=== PATIENT | female | born 1960 | race Caucasian/White ===

== ENCOUNTER → 2021-05-27 00:28 | Outpatient (CLI) | payer BC, SELFPAY ==
[2021-05-29 20:04] LABS: SARS-CoV-2 RNA PCR Negative
== END ==
PROVIDERS: PCP Family Medicine; Visit Provider Nurse Practitioner Family
DX: R68.89 Other general symptoms and signs (principal); Z20.822 Contact with and (suspected) exposure to COVID-19
CPT/HCPCS: C9803; U0003; U0005

== ENCOUNTER → 2022-01-19 09:50 | Outpatient (CLI) | payer BC, SELFPAY ==
--- NOTE | ~2022-01-19 | DEXA_ITS ---
Bone Density Report Name: JACQUELYN EARLY V Age: 61 Sex: Female Ethnicity: White Date of : 1960 Indication: postmenopausal; screening for osteoporosis; height loss; Referring Provider: ASHU CHENG Study: Bone densitometry was performed. Exam Date: January 19, 2022 Accession number: [id number] Bone Density: Region BMD T-score Z-score Classification AP Spine (L1-L4) 1.205 1.4 2.9 Normal Femoral Neck (Left) 0.697 -1.4 -0.1 Osteopenia Total Hip (Left) 1.015 0.6 1.6 Normal Femoral Neck (Right) 0.706 -1.3 0.0 Osteopenia Total Hip (Right) 0.939 0.0 1.0 Normal Total Hip Mean 0.977 0.3 1.3 Normal World Health Organization criteria for BMD impression classify patients as: Normal (T-score at or above -1.0), Osteopenia (T-score between -1.0 and -2.5), or Osteoporosis (T-score at or below -2.5). 10-year Fracture Risk(1): Major Osteoporotic Fracture 6.9% Hip Fracture 0.5% Reported Risk Factors: [place] (), Neck BMD=0.706, BMI=39.0 (1) FRAX(R) Version 3.08. Fracture probability calculated for an untreated patient. Fracture probability may be lower if the patient has received treatment. Clinical Information Provided by Patient: Has used the following medications: Calcium Patient maximum height was 65.5 Menopause Age: 51 Drinks caffeinated beverages Onset of menses at age 13 Number of children 2 Impression: The patient has low bone mass, based on the Left Femoral Neck T-score. The patient has an estimated ten-year risk of hip fracture of 0.5% and an estimated ten-year risk of major fracture of 6.9%, based on the WHO FRAX algorithm. Discussion: BONE DENSITY IS LOW AT ONE OR MORE SKELETAL SITES. This patient's lowest T-score is low at one or more skeletal sites. It meets the World Health Organization's (WHO) criteria for ?low bone mass? (T-score between -1.0 and -2.5). The patient's 10-year risk of fracture as calculated by FRAX is less than the threshold where pharmacological therapy is recommended by the National Osteoporosis Foundation (NOF). However, all treatment decisions require clinical judgment and consideration of individual patient factors, including patient preferences, comorbidities, previous drug use, risk factors not captured in the FRAX model (e.g., frailty, falls, vitamin D deficiency, increased bone turnover, interval significant decline in bone density) and possible under or overestimation of fracture risk by FRAX. The patient should follow a healthful lifestyle (good nutrition with adequate calcium and vitamin D, and appropriate weight-bearing exercise). Follow-Up: Consider repeating this study in 2 to 3 years to reassess this patient's status, or sooner if there is some new clinical indication. Reported by: [facility] on 01/19/2022 10:27:00 AM.
== END ==
PROVIDERS: PCP Family Medicine; Visit Provider Obstetrics & Gynecology Gynecology
DX: Z78.0 Asymptomatic menopausal state (principal); M85.852 Other specified disorders of bone density and structure, left thigh; M85.851 Other specified disorders of bone density and structure, right thigh
CPT/HCPCS: 77080

== ENCOUNTER → 2022-05-11 09:18 | Outpatient (CLI) | payer BC, SELFPAY ==
--- NOTE | ~2022-05-11 | XR_ITS ---
EXAMINATION: XR knee LT 3V DATE: 05/11/2022 09:29 INDICATION: Left knee pain TECHNIQUE: Three views of the right knee were obtained. COMPARISON: None. FINDINGS: Alignment is normal. No fracture or osteochondral lesion. There is advanced osteoarthritis of the medial and patellofemoral compartments and mild osteoarthritis of the lateral compartment. No joint effusion/synovitis. Soft tissues are unremarkable. IMPRESSION: 1. 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 Reviewed, dictated and finalized at location A. [facility] IMPRESSION: 1. Tricompartmental osteoarthritis, severe in the medial and patellofemoral com partments.
== END ==
PROVIDERS: PCP Family Medicine; Visit Provider Chiropractor
DX: M17.12 Unilateral primary osteoarthritis, left knee (principal)
CPT/HCPCS: 73562

== ENCOUNTER 2024-03-23 06:03 | Emergency (ER) | payer BC, SELFPAY ==
--- NOTE | ~2024-03-23 | XR_ITS ---
Portable chest x-ray Comparison: None Clinical History: Cough, congestion Findings: Probable calcified left basilar granuloma. Lungs are otherwise clear. Cardiomediastinal s ilhouette is stable. Bones and soft tissues are unremarkable. Impression: No definite acute pulmonary abnormality. Reviewed, dictated and finalized at [facility]. Impression: No definite acute pulmonary abnormality.
[2024-03-23 06:19] VITALS: BP 157/82; PULSE 68; RESP 14; O2SAT 97
[2024-03-23 07:19] VITALS: BP 148/76; PULSE 66; RESP 16; O2SAT 97
[2024-03-23 07:21] LABS: Influenza A QL RT-PCR Positive (Negative); Influenza B QL RT-PCR Negative (Negative); RSV RNA, RT-PCR Negative (Negative); SARS-CoV-2 RNA PCR Negative (Negative)
--- NOTE | 2024-03-23 08:21 | ED.GENADULT ---
HPI - General Adult General Chief complaint: Upper Respiratory Infection Stated complaint: sick since last week Time Seen by Provider: 03/23/24 06:58 History of Present Illness HPI narrative: patient is a 63-year-old female who presents ER with cough. Productive of green-yellow sputum. Subjective fevers and chills. No known exposure to influenza. Ongoing for 1 week. No chest pain. She has been on steroids for several days. Related Data Home Medications Medication Instructions Recorded Confirmed calcium 600 mg (as cap PO 08/20/19 12/04/23 carbonate)-vitamin D3 5 mcg (200 unit) capsule (Calcium 600 + D(3)) Allergies Allergy/AdvReac Type Severity Reaction Status Date / Time cefuroxime Allergy Unknown Unknown Verified 02/24/24 10:04 Review of Systems Review of Systems: All systems reviewed & are unremarkable except as noted in HPI and below Constitutional: Constitutional: Reports no additional constitutional complaints ENT: Reports system reviewed and no additional complaints, except as documented Cardiovascular: Cardiovascular: Reports no additional cardiovascular complaints Respiratory: Respiratory: Reports no additional respiratory complaints [facility] Past Medical History Medical History Anxiety Arthritis of knee, left Deviated septum History of vaginal delivery x 2 Hypertension Osteopenia of both hips Right shoulder tendinitis Screening for colon cancer Screening, lipid Thyroid disease Vitamin D deficiency Surgical History Surgical History History of carpal tunnel release History of endometrial ablation History of tubal ligation Family History Family History Mother Hypertension Cerebrovascular accident Family history of malignant neoplasm Family history of diabetes mellitus in first degree relative Family history of coronary artery disease Family history of malignant neoplasm of ovary Patient's mother is Family history of congenital heart disease Family history of arthritis Father Family history of lung cancer Sibling Lung cancer Sibling No problems noted. 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 HEAD: Normocephalic, atraumatic. ENT: Mucous membranes moist. TMs normal bilaterally. CHEST: Clear to auscultation but with scant wheezing to the left lower lung field that clears with coughing. No respiratory distress. HEART: Regular rate and rhythm. Normal peripheral pulses. EXTREMITIES: Normal range of motion. No edema. NEURO: Alert and oriented x3. PSYCH: Normal mood and affect. Course Course Emergency Course: Flu positive. No pneumonia. Discharge home With albuterol. Vital Signs Vital signs: Vital Signs Pulse Rate 68 03/23/24 06:19 Respiratory Rate 14 03/23/24 06:19 Blood Pressure 157/82 H 03/23/24 06:19 Pulse Oximetry 97 03/23/24 06:19 Oxygen Delivery Room Air 03/23/24 06:19 Pulse Rate 66
[2024-03-23 08:45] VITALS: BP 178/80; PULSE 63; RESP 17; O2SAT 96
== END 2024-03-23 08:46 | disposition home or self-care (01) ==
PROVIDERS: Student in an Organized Health Care Education/Training Program; Emergency Provider Emergency Medicine; PCP Family Medicine
DX: J10.1 Influenza due to other identified influenza virus with other respiratory manifestations (principal); Z20.822 Contact with and (suspected) exposure to COVID-19; I10 Essential (primary) hypertension; E07.9 Disorder of thyroid, unspecified; E55.9 Vitamin D deficiency, unspecified; M17.12 Unilateral primary osteoarthritis, left knee; F41.9 Anxiety disorder, unspecified; M85.88 Other specified disorders of bone density and structure, other site; Z79.899 Other long term (current) drug therapy
CPT/HCPCS: 71045; 87637; 99283

== ENCOUNTER 2024-04-10 07:03 | Outpatient (CLI) | payer BC, SELFPAY ==
--- NOTE | ~2024-04-10 | DEXA_ITS ---
Bone Density Report Name: JACQUELYN EARLY V Age: 64 Sex: Female Ethnicity: White Date of : 1960 Indication: postmenopausal; screening for osteoporosis; height loss; Referring Provider: JUDY WINSTON Study: Bone densitometry was performed. Exam Date: April 10, 2024 Accession number: [id number] Bone Density: Region BMD T-score Z-score Classification AP Spine(L1-L4) 1.216 1.5 3.2 Normal Femoral Neck (Left) 0.691 -1.4 0.0 Osteopenia Total Hip (Left) 1.019 0.6 1.7 Normal Femoral Neck (Right) 0.685 -1.5 -0.1 Osteopenia Total Hip (Right) 0.939 0.0 1.1 Normal Total Hip Mean 0.979 0.3 1.4 Normal World Health Organization criteria for BMD impression classify patients as: Normal (T-score at or above -1.0), Osteopenia (T-score between -1.0 and -2.5), or Osteoporosis (T-score at or below -2.5). 10-year Fracture Risk(1): Major Osteoporotic Fracture 7.3% Hip Fracture 0.6% Reported Risk Factors: [place] (), Neck BMD=0.691, BMI=41.1 (1) FRAX(R) Version 3.08. Fracture probability calculated for an untreated patient. Fracture probability may be lower if the patient has received treatment. Clinical Information Provided by Patient: Has used the following medications: Vitamin D, Calcium Patient maximum height was 65 Menopause Age: 51 No regular weight bearing exercise Drinks caffeinated beverages Onset of menses at age 13 Number of children 2 Impression: The patient has low bone mass, based on the Right Femoral Neck T-score. The patient has an estimated ten-year risk of hip fracture of 0.6% and an estimated ten-year risk of major fracture of 7.3%, based on the WHO FRAX algorithm. Discussion: BONE DENSITY IS LOW AT ONE OR MORE SKELETAL SITES. This patient's lowest T-score is low at one or more skeletal sites. It meets the World Health Organization's (WHO) criteria for ?low bone mass? (T-score between -1.0 and -2.5). The patient's 10-year risk of fracture as calculated by FRAX is less than the threshold where pharmacological therapy is recommended by the National Osteoporosis Foundation (NOF). However, all treatment decisions require clinical judgment and consideration of individual patient factors, including patient preferences, comorbidities, previous drug use, risk factors not captured in the FRAX model (e.g., frailty, falls, vitamin D deficiency, increased bone turnover, interval significant decline in bone density) and possible under or overestimation of fracture risk by FRAX. The patient should follow a healthful lifestyle (good nutrition with adequate calcium and vitamin D, and appropriate weight-bearing exercise). Follow-Up: Consider repeating this study in 2 to 3 years to reassess this patient's status, or sooner if there is some new clinical indication. Reported by: AMRIK on 04/10/2024 7:41:00 AM. Reviewed, dictated and finalized at location A. [facility]
== END 2024-04-10 07:04 | disposition home or self-care (01) ==
LOC: ANHIMG 07:06
PROVIDERS: PCP Family Medicine; Visit Provider Nurse Practitioner Adult Health
DX: M85.851 Other specified disorders of bone density and structure, right thigh (principal); M85.852 Other specified disorders of bone density and structure, left thigh
CPT/HCPCS: 77080